=== PATIENT | female | born 1995 | race Caucasian/White ===

== ENCOUNTER 2017-10-01 15:15 | Emergency (ER) | payer MEDICAID ==
[~2017-10-01] VITALS: Ht 160 cm; Wt 59.0 kg
[2017-10-01 15:32] VITALS: BP 120/74; Ht 160 cm; Wt 59.0 kg
== END 2017-10-01 17:30 | disposition home or self-care (01) ==
LOC: ED 15:15
DX: S60.012A Contusion of left thumb without damage to nail, initial encounter (principal); S80.02XA Contusion of left knee, initial encounter; F41.9 Anxiety disorder, unspecified; F32.9 Major depressive disorder, single episode, unspecified; V89.2XXA Person injured in unspecified motor-vehicle accident, traffic, initial encounter; Y93.89 Activity, other specified; Y92.89 Other specified places as the place of occurrence of the external cause; Y99.8 Other external cause status